=== PATIENT | male | born 1960 | race Caucasian/White ===

== ENCOUNTER 2020-03-28 15:24 | Emergency (ER) | payer OTHER ==
[~2020-03-28] VITALS: Ht 182.9 cm; Wt 99.8 kg
[2020-03-28 15:35] VITALS: Ht 182.9 cm; Wt 99.8 kg
[2020-03-28 18:29] VITALS: BP 135/84
== END 2020-03-28 18:29 | disposition short-term general hospital (02) ==
LOC: ED 15:24
DX: S32.019A Unspecified fracture of first lumbar vertebra, initial encounter for closed fracture (principal); X58.XXXA Exposure to other specified factors, initial encounter; Y93.89 Activity, other specified; Y92.89 Other specified places as the place of occurrence of the external cause; Y99.8 Other external cause status
CPT/HCPCS: J1170; J2270; J2405